=== PATIENT | male | born 1945 | race Caucasian/White ===

== ENCOUNTER 2021-03-06 10:55 | Outpatient (CLI) | payer MEDICARE, SELFPAY ==
--- NOTE | 2021-03-06 | ECG_ITS ---
Measurements Intervals [place] Rate: 61 P: -3 OR: 207 QRS: -34 QRSD: 105 T: 29 QT: 411 QTc: 417 Interpretive Statements SINUS RHYTHM LEFT AXIS DEVIATION BORDERLINE ECG Electronically Signed On 03-06-2021 11:50:08 CDT by Grzegorz Zelaya D.O.
== END 2021-03-06 10:56 | disposition home or self-care (01) ==
DX: I10 Essential (primary) hypertension (principal)
CPT/HCPCS: 93005

== ENCOUNTER 2021-08-07 10:04 | Outpatient (CLI) | payer MEDICARE, SELFPAY ==
--- NOTE | 2021-08-07 | ECHO_ITS ---
Patient Info Name: Duran Lynn Age: 76 years : 1945 Gender: Male Ht: 75 in Wt: 250 lbs BSA: 2.48 m2 HR: 102 bpm BP: 149 / 74 mmHg Heart Rhythm: Sinus Rhythm Technical Quality: Fair Exam Date: 08/07/2021 11:00 AM Exam Location: [facility] Patient Status: Outpatient Admit Date: 08/07/2021 Staff Ordering Physician: SARAY AQUINO MD Calender Tender: Anna Pepper RDCS Attending Provider: SARAY AQUINO MD Referring Physician: MILES CHAVEZ; Exam Type: CA echo doppler color flow Study Info Indications I35.0 - Nonrheumatic aortic (valve) stenosis Complete two-dimensional, color flow and Doppler transthoracic echocardiogram is performed. Summary 1. Complete two-dimensional, color flow and Doppler transthoracic echocardiogram is performed. 2. Left ventricular chamber dimension is normal. 3. Left ventricular systolic function is normal, estimated at 65-70%. 4. There is mildly increased left ventricular wall thickness. 5. The left ventricular diastolic function is grade I diastolic dysfunction. 6. Left atrial chamber dimension is mildly enlarged. 7. There is moderate aortic valve stenosis with a peak velocity of 271 cm/s, mean gradient of 15 mmHg, and aortic valve area of 1.4 cm2. 8. There is moderate aortic valve calcification. 9. There is mild mitral valve regurgitation. 10. There is mild tricuspid valve regurgitation. 11. There is mild pulmonic regurgitation. Left Ventricle Left ventricular chamber dimension is normal. Left ventricular systolic function is normal, estimated at 65-70%. There is mildly increased left ventricular wall thickness. The left ventricular diastolic function is grade I diastolic dysfunction. Right Ventricle Right ventricular chamber dimension is normal. Right ventricular systolic function is normal. Left Atria Left atrial chamber dimension is mildly enlarged. Right Atria Right atrial chamber dimension is normal. Atrial Septum Intact interatrial septum visualized by color flow imaging. Aortic Valve The aortic valve is trileaflet. There is moderate aortic valve stenosis with a peak velocity of 271 cm/s, mean gradient of 15 mmHg, and aortic valve area of 1.4 cm2. There is trace aortic valve regurgitation. There is moderate aortic valve calcification. Pulmonic Valve The pulmonic valve is normal. There is no pulmonic valve stenosis. There is mild pulmonic regurgitation. Mitral Valve The mitral valve has calcified annulus. There is no mitral valve stenosis. There is mild mitral valve regurgitation. Tricuspid Valve The tricuspid valve leaflets are normal. There is no significant tricuspid valve stenosis. There is mild tricuspid valve regurgitation. Pericardium/Pleural The pericardium appears normal. There is no pericardial effusion. Aorta The aortic root size at the sinus of Valsalva is normal. Left Ventricular Outflow Tract Name Value Normal LVOT 2D LVOT Diameter 2.0 cm LVOT Doppler LVOT Peak Gradient 4 mmHg LVOT Mean Gradient 3 mmHg LVOT VTI 26
== END 2021-08-07 10:05 | disposition home or self-care (01) ==
DX: I10 Essential (primary) hypertension (principal); I08.3 Combined rheumatic disorders of mitral, aortic and tricuspid valves
CPT/HCPCS: 93306

== ENCOUNTER → 2022-06-01 14:43 | Outpatient (CLI) | payer MEDICARE, SELFPAY ==
--- NOTE | ~2022-06-01 | MR_ITS ---
EXAMINATION: MR brain/brain stem wo con DATE: 06/01/2022 15:29 INDICATION: Memory loss. TECHNIQUE: Magnetic resonance imaging (MRI) of the brain and brainstem was performed without intraven ous contrast. COMPARISON: None. FINDINGS: There are scattered areas of nonspecific increased T2-weighted signal intensity in the cere bral white matter, which is within normal limits for the patient's age. There is no intracranial hemo rrhage, acute infarction, or abnormal intracranial mass lesion. The ventricles are normal in size. Th e paranasal sinuses are clear. There are likely changes of ocular lens replacement surgeries. The mas toid air cells are normal. IMPRESSION: 1. Normal aging brain. Reviewed, dictated and finalized at location A. UCT DESIGN ENGINEER IMPRESSION: 1. Normal aging brain.
== END ==
PROVIDERS: PCP Internal Medicine Rheumatology; Visit Provider Internal Medicine Rheumatology
DX: R41.3 Other amnesia (principal)
CPT/HCPCS: 70551

== ENCOUNTER 2022-08-13 12:41 | Outpatient (CLI) | payer MEDICARE, SELFPAY ==
--- NOTE | 2022-08-13 | ECHO_ITS ---
Patient Info Name: Duran Lynn Age: 77 years : 1945 Gender: Male Ht: 76 in Wt: 208 lbs BSA: 2.25 m2 HR: 67 bpm BP: 147 / 73 mmHg Heart Rhythm: Sinus Rhythm Technical Quality: Fair Exam Date: 08/13/2022 1:02 PM Exam Location: [facility] Patient Status: Outpatient Admit Date: 08/13/2022 Staff Ordering Physician: Karey, Amaya Gracia MD Reprographics Associate: Anna Pepper RDCS Attending Provider: Duncan, Amaya Gracia MD Referring Physician: Karey ROJAS; Exam Type: CA echo doppler color flow Study Info Indications I35.0 - Nonrheumatic aortic (valve) stenosis Complete two-dimensional, color flow and Doppler transthoracic echocardiogram is performed. Summary 1. Complete two-dimensional, color flow and Doppler transthoracic echocardiogram is performed. 2. Normal left ventricular size with mild concentric hypertrophy and well-preserved systolic function. 3. Grade 1 diastolic noncompliance. 4. Moderate to severe aortic regurgitation valve area 1.09 cm2. Left Ventricle Left ventricular chamber dimension is normal. Left ventricular systolic function is normal, estimated at 65-70%. There is mild concentric increased left ventricular wall thickness. The left ventricular diastolic function is grade I diastolic dysfunction. Right Ventricle Right ventricular chamber dimension is normal. Left Atria Left atrial chamber dimension is normal. Right Atria Right atrial chamber dimension is normal. Aortic Valve The aortic valve is trileaflet. There is moderate to severe aortic valve stenosis with a peak velocity of 237 cm/s, mean gradient of 14 mmHg, and aortic valve area of 1.8 cm2. There is no aortic valve regurgitation. Pulmonic Valve The pulmonic valve is not well visualized. Mitral Valve The mitral valve has normal leaflets. Tricuspid Valve The tricuspid valve leaflets are normal. Pericardium/Pleural The pericardium appears normal. Aorta The aortic root size at the sinus of Valsalva is normal. Left Ventricular Outflow Tract Name Value Normal LVOT 2D LVOT Diameter 2.2 cm LVOT Doppler LVOT Peak Gradient 3 mmHg LVOT Mean Gradient 2 mmHg LVOT VTI 28 cm LVOT VTI/AV VTI Ratio 0.5 LVOT Stroke Volume 104 ml LVOT CO 4.7 l/min LVOT CI 2.1 l/min/m2 Pulmonic Valve Name Value Normal RVOT Doppler RVOT Peak Gradient 3 mmHg PV Doppler PV Peak Gradient 4 mmHg Mitral Valve Name Value Normal
== END 2022-08-13 12:42 | disposition home or self-care (01) ==
LOC: ANHCARD 12:42
PROVIDERS: PCP Internal Medicine Rheumatology; Visit Provider Internal Medicine Rheumatology
DX: I35.0 Nonrheumatic aortic (valve) stenosis (principal); I35.1 Nonrheumatic aortic (valve) insufficiency
CPT/HCPCS: 93306

== ENCOUNTER 2023-05-28 14:39 | Outpatient (CLI) | payer MEDICARE, SELFPAY ==
--- NOTE | 2023-05-28 | ECHO_ITS ---
Patient Info Name: Duran Lynn Age: 77 years : 1945 Gender: Male Ht: 76 in Wt: 200 lbs BSA: 2.21 m2 HR: 72 bpm BP: 149 / 76 mmHg Heart Rhythm: Sinus Rhythm Technical Quality: Fair Exam Date: 05/28/2023 2:55 PM Exam Location: [facility] Patient Status: Outpatient Admit Date: 05/28/2023 Staff Ordering Physician: Karey, Amaya Gracia MD Bus Assistant: Rosenda Benoit RDCS Attending Provider: Duncan, Amaya Gracia MD Referring Physician: Karey ROJAS; Exam Type: CA echo doppler color flow Study Info Indications I35.0 - Nonrheumatic aortic (valve) stenosis Complete two-dimensional, color flow and Doppler transthoracic echocardiogram is performed. Summary 1. Complete two-dimensional, color flow and Doppler transthoracic echocardiogram is performed. 2. Left ventricular chamber dimension is normal. 3. Left ventricular systolic function is normal, estimated at 65-70%. 4. There is mildly increased left ventricular wall thickness. 5. The left ventricular diastolic function is grade I diastolic dysfunction. 6. Right ventricular systolic function is normal. 7. There is moderate aortic valve calcification. 8. There is mild to moderate aortic valve stenosis with a peak velocity of 287 cm/s, mean gradient of 17 mmHg, and aortic valve area of 1.4 cm2. 9. There is trace aortic valve regurgitation. Left Ventricle Left ventricular chamber dimension is normal. Left ventricular systolic function is normal, estimated at 65-70%. There is mildly increased left ventricular wall thickness. The left ventricular diastolic function is grade I diastolic dysfunction. Right Ventricle Right ventricular chamber dimension is normal. Right ventricular systolic function is normal. Left Atria Left atrial chamber dimension is normal. Right Atria Right atrial chamber dimension is normal. Atrial Septum Intact interatrial septum visualized by color flow imaging. Aortic Valve The aortic valve is probable trileaflet. There is mild to moderate aortic valve stenosis with a peak velocity of 287 cm/s, mean gradient of 17 mmHg, and aortic valve area of 1.4 cm2. There is trace aortic valve regurgitation. There is moderate aortic valve calcification. Pulmonic Valve The pulmonic valve is not well visualized. There is trace pulmonic regurgitation. Mitral Valve There is trace mitral valve regurgitation. Tricuspid Valve There is trace tricuspid valve regurgitation. Pericardium/Pleural The pericardium appears epicardial fat pad. There is no pericardial effusion. Inferior Vena Cava Normal inferior vena cava with >50% collapse upon inspiration consistent with normal right atrial pressure, 3 mmHg. Aorta The aortic root size at the sinus of Valsalva is normal. Left Ventricular Outflow Tract Name Value Normal LVOT 2D LVOT Diameter 2.2 cm LVOT Doppler LVOT Peak Gradient 4 mmHg LVOT Mean Gradient 2 mmHg LVOT VTI 20 cm LVOT VTI/AV VTI Ratio 0.3 LVOT Stroke Volume 79 ml LVOT CO 5.2 l/min LVOT CI 2.3 l/min/m2
== END 2023-05-28 14:40 | disposition home or self-care (01) ==
LOC: ANHCARD 14:40
PROVIDERS: PCP Internal Medicine Rheumatology; Visit Provider Internal Medicine Rheumatology
DX: I35.1 Nonrheumatic aortic (valve) insufficiency (principal); I35.0 Nonrheumatic aortic (valve) stenosis; I70.0 Atherosclerosis of aorta; R93.1 Abnormal findings on diagnostic imaging of heart and coronary circulation
CPT/HCPCS: 93306

== ENCOUNTER 2024-06-22 08:28 | Outpatient (CLI) | payer MEDICARE, SELFPAY ==
--- NOTE | 2024-06-22 | ECHO_ITS ---
Patient Info Name: Duran Lynn Age: 78 years : 1945 Gender: Male Ht: 76 in Wt: 200 lbs BSA: 2.21 m2 HR: 71 bpm BP: 150 / 71 mmHg Heart Rhythm: Sinus Rhythm Technical Quality: Fair Exam Date: 06/22/2024 8:43 AM Exam Location: [facility] Patient Status: Outpatient Admit Date: 06/22/2024 Staff Ordering Physician: Karey, Amaya Gracia MD Aircraft Designer: Rosenda Benoit RDCS Attending Provider: Duncan, Amaya Gracia MD Referring Physician: Karey ROJAS; Exam Type: CA echo doppler color flow Study Info Indications - Aortic stenosis Complete two-dimensional, color flow and Doppler transthoracic echocardiogram is performed. Summary 1. Complete two-dimensional, color flow and Doppler transthoracic echocardiogram is performed. 2. Normal biventricular systolic function. 3. Moderate aortic stenosis with valve area unchanged from previous study. Left Ventricle The left ventricle is normal in size and systolic function. The left ventricular hammer are mildly thickened. Left ventricular ejection fraction is visually estimated to be 60-65%. Right Ventricle The right ventricle is normal in size and systolic function. Left Atria The left atrium is moderately enlarged. Right Atria The right atrial is normal size. Atrial Septum The atrial septum visually appears intact. Aortic Valve The aortic valve is trileaflet and calcified. There is mild aortic regurgitation. There is moderate aortic stenosis with peak velocity 3.03 cm/s, mean gradient 21 mm Hg, and valve area of 1.4 cm2. Pulmonic Valve The pulmonic valve is not well visualized. There is no color Doppler evidence of pulmonic valve regurgitation. Mitral Valve The mitral valve is sclerotic. There is no mitral regurgitation. Tricuspid Valve The tricuspid valves are grossly normal. There is trace tricuspid regurgitation. Inferior Vena Cava Inferior vena cava is not well visualized. Aorta The aortic root at the level of the sinus of Valsalva measures 3.2 cm in diameter. Left Ventricular Outflow Tract Name Value Normal LVOT 2D LVOT Diameter 2.2 cm LVOT Doppler LVOT Peak Gradient 4 mmHg LVOT Mean Gradient 2 mmHg LVOT VTI 25 cm LVOT VTI/AV VTI Ratio 0.4 LVOT Stroke Volume 95 ml LVOT CO 6.0 l/min LVOT CI 2.7 l/min/m2 Pulmonic Valve Name Value Normal RVOT Doppler RVOT Peak Gradient 3 mmHg PV Doppler PV Peak Gradient 5 mmHg Mitral Valve Name Value Normal MV Doppler MV Decel Coles 314 cm/s2 MV PHT 72 ms MV Area (PHT) 3.1 cm2 4.0-5.0 MV Diastolic Function MV E Peak Velocity 77 cm/s MV A Peak Velocity 99 cm/s MV E/A 0.8 MV Decel Time 247 ms MV Annular TDI MV E/e' (Septal) 12.1 <=8.0 MV E/e' (Lateral) 7.8 <=8.0 MV E/e' (Average) 9.9 Tricuspid Valve Name Value Normal TV Regurgitation Doppler TR Peak Velocity 225 cm/s TR Peak Gradient 20 mmHg Estimated PAP/RSVP RA Pressure 10 mmHg <=5 PA Systolic Pressure 30 mmHg <36 RV Systolic Pressure 30 mmHg <36 Aorta Name Value Normal Ascending Aorta Ao Root Diameter (MM) 2.8 cm Ao Root Diam Index (MM) 1.3 cm/m2 Aortic Valve Name Value Normal AV Doppler AV Peak Velocity 303 cm/s AV Peak Gradient 37 mmHg AV Mean Gradient 21 mmHg AV VTI 66 cm AV Area (Cont Eq VTI) 1.4 cm2 >=3.0 AV Area (Cont Eq Alex) 1.3 cm2 AV Regurgitation 2D LVOT Area 3.8 cm2 AV Regurgitation Doppler AR Decel Time 1,597 ms AR Decel Coles 211 cm/s2 AR PHT 463 ms Ventricles Name Value Normal LV Dimensions 2D/MM IVS Diastolic Thickness (2D) 1.3 cm 0.6-1.0 LVID Diastole (2D) 4.5 cm 4.2-5.8 LVIW Diastolic Thickness (2D) 1.0 cm 0.6-1.0 LVID Systole (2D) 2.7 cm 2.5-4.0 LVOT Diameter 2.2 cm LV Mass (2D Cubed) 183.14 g 88.00-224.00 LV Mass Index (2D Cubed) 83 g/m2 49-115 Relative Wall Thickness (2D) 0.45 LV Fractional Shortening/Ejection Fraction 2D/MM LV Fractional Shortening (2D) 39 % 25-43 LV EF (2D Teicholz) 70 % 52-72 LV Diastolic Volume (4C MOD) 102 ml LV EF (4C MOD) 71 % LV Diastolic Volume (2C MOD) 48 ml LV EF (2C MOD) 68 % LV Diastolic Volume (BP MOD) 70 ml 62-150 LV Diastolic Volume Index (BP MOD) 32 ml/m2 34-74 LV Systolic Volume (BP MOD) 21 ml 21-61 LV Systolic Volume Index (BP MOD) 10 ml/m2 11-31 LV EF (BP MOD) 70 % 52-72 LV Diastolic Length (4C) 8.8 cm LV Systolic Length (4C) 6.9 cm LV Stroke Volume (4C MOD) 72 ml Atria Name Value Normal LA Dimensions LA Dimension (MM) 5.0 cm 3.0-4.1 LA Volume (4C A-L) 79 ml LA Volume (BP A-L) 93 ml RA Dimensions RA Area (4C) 18.0 cm2 <=18.0 Report Signatures
== END 2024-06-22 08:29 | disposition home or self-care (01) ==
LOC: ANHCARD 08:32
PROVIDERS: PCP Internal Medicine Rheumatology; Visit Provider Internal Medicine Rheumatology
DX: I35.0 Nonrheumatic aortic (valve) stenosis (principal)
CPT/HCPCS: 93306